=== PATIENT | male | born 1965 | race African-American/Black ===

== ENCOUNTER 2016-06-23 19:38 | Emergency (ER) | payer BC ==
[~2016-06-23] VITALS: Ht 177.8 cm; Wt 90.3 kg
[~2016-06-23 19:38] MED LIST: COUMADIN 2 MG TA2 M1 PO; IBUPROFEN 600600 M1 PO; IRON325 PO; NORCO 10-325 T1 EACH PO
[2016-06-23] MEDS ORDERED: MOBIC15 MG PO (21:12)
[2016-06-23] MEDS ORDERED: PREDNISONE 20 M20 MG PO (21:12)
== END 2016-06-23 21:33 | disposition home or self-care (01) ==
LOC: ER 19:38
DX: J02.8 Acute pharyngitis due to other specified organisms (principal)